=== PATIENT | male | born 1950 | race Caucasian/White ===

== ENCOUNTER 2018-09-09 14:41 | Emergency (ER) | payer MEDICARE, OTHER ==
[~2018-09-09] VITALS: Ht 175.3 cm; Wt 100.0 kg
[2018-09-09 14:43] VITALS: BP 148/76
[2018-09-09] MEDS ORDERED: ketorolac tromethamine 15mg/ml inj. IM ONE (16:15)
[2018-09-09] MEDS ORDERED: ACYC-202 PO (16:26)
== END 2018-09-09 17:08 | disposition home or self-care (01) ==
LOC: ER 14:42
DX: S29.012A Strain of muscle and tendon of back wall of thorax, initial encounter (principal); B02.9 Zoster without complications; Z88.6 Allergy status to analgesic agent; Z79.2 Long term (current) use of antibiotics; X58.XXXA Exposure to other specified factors, initial encounter; Y93.89 Activity, other specified; Y92.89 Other specified places as the place of occurrence of the external cause; Y99.8 Other external cause status
CPT/HCPCS: 96372; 99283; J1885